=== PATIENT | male | born 1985 | race Two or more races ===

== ENCOUNTER 2018-01-20 19:13 | Emergency (ER) | payer OTHER ==
[~2018-01-20] VITALS: Ht 188 cm; Wt 86.2 kg
[2018-01-20 19:15] VITALS: BP 148/84
[2018-01-20] MEDS ORDERED: LORazepam Inj 2mg/ml 1ml IV STA (19:15)
--- NOTE | 2018-01-20 19:19 | Emergency Room Report ---
History of Present Illness General Chief Complaint: Seizure Source: Patient Present Illness HPI Patient brought by EMS for alleged seizure. 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 He has an abrasion on his arm. He there is no prior history of seizures. Paramedics had to convince the patient to come to the hospital. His blood glucose in the field was 84. Somebody told him this morning he didn't look well. He was working in hot cars and came in diaphoretic according to his loss. This preceded the event. He denies any medical problems. He feels thirsty at this time. His tetanus is up-to-date. He's complaining about right scapular pain and has difficulty moving his right arm. Pain rated 7/10, aching and worse with movement or lifting R arm. No numbness. Scrapes on elbow. He denies shortness of breath, chest pain, palpitations, nausea, vomiting, diarrhea or other medical problems. He was drinking 2 nights ago. He doesn't drink every day. He gives more history later in hospital stay and states he initially was confused. Apparently he does take Xanax 2 mg. Not taken for last 3 days. Allergies: Coded Allergies: No Known Allergies (Unverified , 01/20/18) Patient History Past Medical History: see triage record Social History: Reports: alcohol use Social History Narrative works at [employer] Reviewed Nursing Documentation: PMH: Agreed; PSxH: Agreed Nursing Documentation-PM Past Medical History: No Stated History Review of Systems All Other Systems: negative except mentioned in HPI Physical Exam Vital Signs Date Time Temp Pulse Resp B/P (MAP) Pulse Ox O2 Delivery O2 Flow Rate FiO2 01/20/18 19:09 97.5 116 20 143/76 99 Room Air 97.5 Sp02 EP Interpretation: reviewed, normal General Appearance: well appearing, no apparent distress, GCS 15 Head: normocephalic, atraumatic Eyes: bilateral eye normal inspection, bilateral eye PERRL, bilateral eye EOMI ENT: moist mucus membranes, other - no oral trauma Neck: supple Respiratory: lungs clear, normal breath sounds, other - R scapular pain Cardiovascular #1: regular rate, rhythm Cardiovascular #2: 2+ radial (R) Gastrointestinal: normal inspection, normal bowel sounds, non tender, no mass, non-distended Musculoskeletal: back normal, gait/station normal, normal range of motion Neurologic: alert, oriented x3, auto travel counselor III-XII nml as tested, motor strength/tone normal, DTRs symmetric, sensory intact, speech normal Psychiatric: mood/affect normal Skin: warm/dry, abrasions - R elbow Medical Decision Making Diagnostic Impression: Primary Impression: New onset seizure Additional Impressions: History of benzodiazepine use Muscle strain of scapular region Qualified Codes: S46.911A - Strain of unspecified muscle, fascia and tendon at shoulder and upper arm level, right arm, initial encounter ER Course Patient with possible seizure. Differential includes syncope, new-onset seizure , brain bleed, electrolyte abnormality, drug ingestion amongst others. Evaluation will be with CT the head, chest x-ray and labs. The patient will receive IV hydration and a dose of Ativan IV. Patient not orthostatic but feels thirsty. Significant pain R scapula, needs x-rays and also analgesia. EKG with sinus tachycardia. CXR, scapula negative. Labs with elevated lactate. CT with question of artifact cerebellum. Creat elevated. Patient improved with hydration and ativan. Still with pain scapula. Percocet ordered. This could be benzodiazepine withdrawal seizure, however, will cover with keppra. IV dose ordered. Discussed all results and findings with patient and friend (including seizure precautions). Improved with sling - he took off and will apply again when at home. Patient stable for outpatient observation and treatment. DMV form completed. Laboratory Tests Test 01/20/18 19:45 White Blood Count 11.8 K/UL (4.8-10.8) H Red Blood Count 4.85 M/UL (4.70-6.10) Hemoglobin 15.5 G/DL (14.2-18.0) Hematocrit 46.1 % (42.0-52.0) Mean Corpuscular Volume 95 FL (80-99) Mean Corpuscular Hemoglobin 31.9 PG (27.0-31.0) H Mean Corpuscular Hemoglobin Concent 33.6 G/DL (32.0-36.0) Red Cell Distribution Width 11.8 % (11.6-14.8) Platelet Count 568 K/UL (150-450) H Mean Platelet Volume 6.0 FL (6.5-10.1) L Neutrophils (%) (Auto) 58.9 % (45.0-75.0) Lymphocytes (%) (Auto) 31.5 % (20.0-45.0) Monocytes (%) (Auto) 7.6 % (1.0-10.0) Eosinophils (%) (Auto) 0.8 % (0.0-3.0) Basophils (%) (Auto) 1.2 % (0.0-2.0) Urine Color Pale yellow Urine Appearance Clear Urine pH 5 (4.5-8.0) Urine Specific [place] 1.020 (1.005-1.035) Urine Protein 2+ (NEGATIVE) H Urine Glucose (UA) Negative (NEGATIVE) Urine Ketones Negative (NEGATIVE) Urine Blood 4+ (NEGATIVE) H Urine Nitrite Negative (NEGATIVE) Urine Bilirubin Negative (NEGATIVE) Urine Urobilinogen Normal MG/DL (0.0-1.0) Urine Leukocyte Esterase 1+ (NEGATIVE) H Urine RBC 0-2 /HPF (0 - 0) H Urine WBC 0-2 /HPF (0 - 0) Urine Squamous Epithelial Cells None /LPF (NONE/OCC) Urine Bacteria None /HPF (NONE) Sodium Level 137 MMOL/L (136-145) Potassium Level 3.9 MMOL/L (3.5-5.1) Chloride Level 101 MMOL/L (98-107) Carbon Dioxide Level 23 MMOL/L (21-32) Anion Gap 13 mmol/L (5-15) Blood Urea Nitrogen 13 mg/dL (7-18) Creatinine 1.6 MG/DL (0.55-1.30) H Estimate Glomerular Filtration Rate 51.0 mL/min (>60) Glucose Level 115 MG/DL (74-106) H Lactic Acid Level 8.40 mmol/L (0.4-2.0) H Calcium Level 9.2 MG/DL (8.5-10.1) Total Bilirubin 0.3 MG/DL (0.2-1.0) Aspartate Amino Transferase (AST) 45 U/L (15-37) H Alanine Aminotransferase (ALT) 67 U/L (12-78) Alkaline Phosphatase 80 U/L (46-116) Total Creatine Kinase 494 U/L (26-308) H Troponin I 0.000 ng/mL (0.000-0.056) Total Protein 7.7 G/DL (6.4-8.2) Albumin 3.5 G/DL (3.4-5.0) Globulin 4.2 g/dL Albumin/Globulin Ratio 0.8 (1.0-2.7) L Salicylates Level 2.2 ug/mL (2.8-20) L Urine Opiates Screen Negative (NEGATIVE) Acetaminophen Level < 2 MCG/ML (10-30) L Urine Barbiturates Screen Negative (NEGATIVE) Phencyclidine (PCP) Screen Negative (NEGATIVE) Urine Amphetamines Screen Negative (NEGATIVE) Urine Benzodiazepines Screen Positive (NEGATIVE) H Urine Cocaine Screen Negative (NEGATIVE) Urine Marijuana (THC) Screen Positive (NEGATIVE) H Serum Alcohol < 3 mg/dL EKG Diagnostic Results Rate: tachycardiac ST Segments: no acute changes Rhythm Strip Diag. Results EP Interpretation: yes Rhythm: NSR, no PVC's, no ectopy Chest X-Ray Diagnostic Results Chest X-Ray Diagnostic Results : Chest X-Ray Ordered: Yes # of Views/Limited/Complete: 1 View Indication: Other EP Interpretation: Yes Interpretation: no consolidation, no effusion, no pneumothorax Impression: No acute disease Electronically Signed by: Chalino Ojeda MD Other X-Ray Diagnostic Results Other X-Ray Diagnostic Results : X-Ray ordered: scapula R # of Views/Limited Vs Complete: 3 View Indication: Pain Interpretation: no dislocation, no soft tissue swelling, no fractures Impression: No acute disease Electronically Signed by: Chalino Ojeda MD CT/MRI/US Diagnostic Results CT/MRI/US Diagnostic Results : Imaging Test Ordered: head Impression question of artifact cerebellum Last Vital Signs Date Time Temp Pulse Resp B/P (MAP) Pulse Ox O2 Delivery O2 Flow Rate FiO2 01/20/18 23:35 97.6 100 20 142/81 99 Room Air 207.5 Status: improved Disposition: HOME, SELF-CARE Condition: Improved Scripts Ibuprofen* (MOTRIN*) 600 Mg Tablet 600 MG ORAL Q6H PRN for For Pain, #16 TAB Prov: Chalino Ojeda M.D. 01/20/18 Hydrocodone Bit/Acetaminophen 5-325* (NORCO 5-325*) 1 Each Tablet 1 TAB ORAL Q6H PRN for For Pain, #12 TAB 0 Refills Prov: Chalino Ojeda M.D. 01/20/18 Levetiracetam (Keppra) 250 Mg Tablet 500 MG ORAL EVERY 12 HOURS, #50 TAB 0 Refills Prov: Chalino Ojeda M.D. 01/20/18 Chalino Ojeda M.D. Jan 20, 2018 19:19
[2018-01-20] MEDS ORDERED: Bacitracin Oint UD TOPIC ONE (19:45)
[2018-01-20] MEDS ORDERED: Ketorolac 30mg Inj IV ONE (19:45)
[2018-01-20 20:06] LABS: BASOPHILS % (AUTO) 1.2 % (0.0-2.0); EOSINOPHILS % (AUTO) 0.8 % (0.0-3.0); HEMATOCRIT 46.1 % (42.0-52.0); HEMOGLOBIN 15.5 G/DL (14.2-18.0); LYMPHOCYTES % (AUTO) 31.5 % (20.0-45.0); MEAN CORPUSCULAR VOLUME 95 FL (80-99); MONOCYTES % (AUTO) 7.6 % (1.0-10.0); NEUTROPHILS % (AUTO) 58.9 % (45.0-75.0); PLATELET COUNT 568 K/UL (150-450); RED BLOOD COUNT 4.85 M/UL (4.70-6.10); RED CELL DISTRIBUTION WIDTH 11.8 % (11.6-14.8); WHITE BLOOD COUNT 11.8 K/UL (4.8-10.8)
[2018-01-20 20:31] LABS: APPEARANCE,URINE CLEAR; BILIRUBIN, URINE NEGATIVE (NEGATIVE); COLOR,URINE PALE YELLOW; GLUCOSE, URINE (UA) NEGATIVE (NEGATIVE); KETONES,URINE NEGATIVE (NEGATIVE); LEUKOCYTE ESTERASE ,URINE 1+ (NEGATIVE); NITRITE,URINE NEGATIVE (NEGATIVE); PH,URINE 5 (4.5-8.0); PROTEIN,URINE 2+ (NEGATIVE); UROBILINOGEN,URINE NORMAL MG/DL (0.0-1.0)
[2018-01-20 20:39] LABS: ANION GAP 13 mmol/L (5-15); BLOOD UREA NITROGEN 13 mg/dL (7-18); CALCIUM 9.2 MG/DL (8.5-10.1); CARBON DIOXIDE 23 MMOL/L (21-32); CHLORIDE 101 MMOL/L (98-107); CREATININE 1.6 MG/DL (0.55-1.30); POTASSIUM 3.9 MMOL/L (3.5-5.1); SODIUM 137 MMOL/L (136-145)
[2018-01-20 20:43] LABS: ALANINE AMINOTRANSFERASE 67 U/L (12-78); ALBUMIN 3.5 G/DL (3.4-5.0); ALBUMIN/GLOBULIN RATIO 0.8 (1.0-2.7); ALKALINE PHOSPHATASE 80 U/L (46-116); ASPARTATE AMINO TRANSFERASE 45 U/L (15-37); BILIRUBIN,TOTAL 0.3 MG/DL (0.2-1.0); CREATINE KINASE 494 U/L (26-308)
[2018-01-20] MEDS ORDERED: NORCO 5-325 TA1 EACH ORAL (21:52)
[2018-01-20] MEDS ORDERED: KEPPRA500 MG ORAL (21:52)
[2018-01-20] MEDS ORDERED: IBUPROFEN600 MG ORAL (21:52)
[2018-01-20] MEDS ORDERED: oxyCODONE HCL/Acetaminophen 5/325mg ORAL ONE (22:00)
[2018-01-20] MEDS ORDERED: levETIRAcetam 500mg/NS100ml 100 ML IVPB ONE (22:00)
[2018-01-20 23:35] VITALS: BP 142/81
--- NOTE | 2018-01-23 19:09 | Cardiology Report ---
APPROVED REPORT EKG Measurement Heart [id number] Sinus tachycardia Otherwise normal ECG
== END 2018-01-20 23:35 | disposition home or self-care (01) ==
LOC: EDBD 19:13 → EMR 19:33
DX: R56.9 Unspecified convulsions (principal); S46.911A Strain of unspecified muscle, fascia and tendon at shoulder and upper arm level, right arm, initial encounter; X58.XXXA Exposure to other specified factors, initial encounter; Y92.89 Other specified places as the place of occurrence of the external cause; Z79.899 Other long term (current) drug therapy
CPT/HCPCS: 36415; 70450; 71045; 73010; 80053; 80307; 81003; 82550; 83605; 84484; 85025; 93005; 96361; 96374; 96375; 99284; G0480; J1885; J1953; 80329

== ENCOUNTER 2018-02-08 09:01 | Outpatient (CLI) | payer OTHER ==
[~2018-02-08 09:01] MED LIST: IBUPROFEN600 MG ORAL; KEPPRA500 MG ORAL; NORCO 5-325 TA1 EACH ORAL
== END 2018-02-08 11:01 | disposition home or self-care (01) ==
LOC: CAR 09:01
DX: G40.909 Epilepsy, unspecified, not intractable, without status epilepticus (principal)
CPT/HCPCS: 95819